=== PATIENT | male | born 1985 | race Hispanic/Latino ===

== ENCOUNTER 2023-11-05 11:38 | Emergency (ER) | payer OTHER ==
[~2023-11-05] VITALS: Ht 172.7 cm; Wt 88.7 kg
[2023-11-05 11:39] VITALS: BP 133/67; TEMP 98.7; O2SAT 100
== END 2023-11-05 15:52 | disposition left against medical advice (07) ==
LOC: M ED 11:38
DX: Z53.21 Procedure and treatment not carried out due to patient leaving prior to being seen by health care provider (principal)

== ENCOUNTER 2024-11-06 04:39 | Emergency (ER) | payer OTHER ==
[~2024-11-06] VITALS: Ht 172.7 cm; Wt 98.2 kg
[2024-11-06] MEDS ORDERED: MELO7.5T35 (04:45)
[2024-11-06] MEDS: ONDANSETRON 4MG 2ML VIAL IV ONE (05:23)
[2024-11-06] MEDS: KETOROLAC 30 MG/ML 1ML VIAL IV ONE (05:24)
[2024-11-06 05:29] LABS: BASO # 0.1 10^3/uL (0.0-0.2); BASO % 0.8 % (0.0-1.0); EOS # 0.2 10^3/uL (0.0-0.5); EOS % 2.8 % (0.0-3.0); HEMATOCRIT 44.4 % (42.0-52.0); HEMOGLOBIN 14.9 g/dl (13.5-17.5); LYMPH # 3.4 10^3/uL (1.5-5.0); LYMPH % 44.6 % (24.0-44.0); MEAN CORPUSCULAR HEMOGLOBIN 31.4 pg (27.0-33.0); MEAN CORPUSCULAR HGB CONC 33.6 g/dl (32.0-36.5); MEAN CORPUSCULAR VOLUME 93.5 fl (80.0-96.0); MONO # 0.8 10^3/uL (0.0-0.8); MONO % 10.2 % (2.0-8.0); NEUTROPHILS # 3.2 10^3/uL (1.5-8.5); NEUTROPHILS % 41.2 % (36.0-66.0); PLATELET COUNT, AUTOMATED 278 10^3/uL (150-450); RED BLOOD COUNT 4.75 10^6/uL (4.30-6.10); WHITE BLOOD COUNT 7.6 10^3/uL (4.0-10.0)
[2024-11-06 05:51] LABS: LIPASE 41 U/L (12-53)
[2024-11-06 05:52] LABS: AMYLASE 78 U/L (30-118)
[2024-11-06 05:53] LABS: ALKALINE PHOSPHATASE 78 U/L (40-129); ALT/SGPT 19 U/L (7.0-40); AST/SGOT 16 U/L (<34); BILIRUBIN,DIRECT 0.1 MG/DL (<0.4); BILIRUBIN,TOTAL 0.3 MG/DL (0.3-1.2); BLOOD UREA NITROGEN 15 MG/DL (9-23); CALCIUM LEVEL 9.3 MG/DL (8.5-10.1); CARBON DIOXIDE LEVEL 32 MMOL/L (20-31); CHLORIDE LEVEL 108 MMOL/L (98-107); CREATININE FOR GFR 1.19 MG/DL (0.70-1.30); GLOMERULAR FILTRATION RATE > 60.0 (>60); GLUCOSE, FASTING 107 MG/DL (60-100); POTASSIUM SERUM 4.1 MMOL/L (3.5-5.1); SODIUM LEVEL 145 MMOL/L (136-145)
[2024-11-06] MEDS: MORPHINE 2 MG/ML 1ML VIAL IV ONE (06:53)
[2024-11-06 08:00] VITALS: BP 116/72; TEMP 98; O2SAT 98
[2024-11-06] MEDS ORDERED: ONDA-282 PO (08:04)
[2024-11-06] MEDS ORDERED: FLOM0.4C39 PO (08:04)
[2024-11-06] MEDS ORDERED: HYDR-3713 PO (08:04)
== END 2024-11-06 08:15 | disposition home or self-care (01) ==
LOC: M ED 04:39
DX: N20.1 Calculus of ureter (principal)
CPT/HCPCS: 74176; 80048; 80076; 82150; 83690; 85025; 93041; 96374; 96375; 99284; J1885; J2405